=== PATIENT | male | born 1985 | race Caucasian/White ===

== ENCOUNTER 2016-06-26 12:50 | Inpatient (IN) | payer OTHER ==
[2016-06-26 13:06] VITALS: BMI 26.7
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
[2016-06-26] MEDS ORDERED: diazePAM 5 MG TABLET PO ONE (14:30)
[2016-06-26] MEDS ORDERED: METHADONE HCL 10 MG TABLET (FOR DETOX USE ONLY) PO ONE ×2 (14:30→23:00)
[2016-06-26] MEDS ORDERED: IBUPROFEN 400 MG TABLET (FP) PO PRN (14:32)
[2016-06-26] MEDS ORDERED: MAG HYDROX/AL HYDROX/SIMETH 30 ML UNIT-DOSE CUP PO PRN (14:32)
[2016-06-26] MEDS ORDERED: P-EPHED 60MG/TRIPROLIDI 2.5MG TABLET PO PRN (14:32)
[2016-06-26] MEDS ORDERED: hydrOXYzine PAMOATE 50 MG CAPSULE (FP) PO PRN (14:32)
[2016-06-26] MEDS ORDERED: ACETAMINOPHEN 325 MG TABLET (FP) PO PRN (14:32)
[2016-06-26] MEDS ORDERED: LOPERAMIDE HCL 2 MG CAPSULE PO PRN (14:32)
[2016-06-26] MEDS ORDERED: MENTHOL/PHENOL 1 EACH UD MM PRN (14:32)
[2016-06-26] MEDS ORDERED: MAGNESIUM CITRATE 300 ML BOTTLE PO PRN (14:32)
[2016-06-26] MEDS ORDERED: diphenhydrAMINE HCL 50 MG CAPSULE PO PRN (14:32)
[2016-06-26] MEDS ORDERED: guaiFENesin/D-METHORPHAN HB 10 ML UNIT-DOSE CUPS PO PRN (14:32)
[2016-06-26] MEDS ORDERED: MAGNESIUM HYDROX 2400MG/30ML ORAL SUSPENSION 30 ML CUP PO PRN (14:32)
[2016-06-26] MEDS: NICOTINE 21 MG/24 HOURS TOPICAL PATCH TD SCH (15:51)
[2016-06-26 17:04] LABS: URINE APPEARANCE CLEAR; URINE BILIRUBIN NEGATIVE (NEGATIVE); URINE BLOOD NEGATIVE (NEGATIVE); URINE COLOR YELLOW; URINE GLUCOSE (UA) NEGATIVE (NEGATIVE); URINE KETONE TRACE (NEGATIVE); URINE LEUK ESTERASE NEGATIVE (NEGATIVE); URINE NITRITE NEGATIVE (NEGATIVE); URINE PROTEIN NEGATIVE (NEGATIVE); URINE UROBILINOGEN 2.0 E.U/dl E.U./dl (0.2-1.0)
[2016-06-26] MEDS: RANITIDINE HCL 150 MG TABLET (FP) PO SCH (17:31)
[2016-06-26] MEDS: NICOTINE POLACRILEX 2 MG GUM BC PRN ×2 (20:03→22:19)
[2016-06-26] MEDS: diazePAM 5 MG TABLET PO PRN (20:04)
[2016-06-26] MEDS: CYCLOBENZAPRINE HCL 10 MG TABLET (FP) PO PRN (22:17)
[2016-06-26] MEDS: THIAMINE HCL 100 MG TABLET (FP) PO SCH (22:17)
[2016-06-26] MEDS: cloNIDine HCL 0.1 MG TABLET PO SCH (22:17)
[2016-06-26] MEDS: diazePAM 5 MG TABLET PO SCH (22:17)
[2016-06-27] MEDS: diazePAM 5 MG TABLET PO SCH ×3 (05:47→22:42)
[2016-06-27] MEDS: diazePAM 5 MG TABLET PO PRN ×3 (07:37→18:58)
[2016-06-27] MEDS: CYCLOBENZAPRINE HCL 10 MG TABLET (FP) PO PRN ×3 (07:37→18:58)
[2016-06-27] MEDS ORDERED: METHADONE HCL 10 MG TABLET (FOR DETOX USE ONLY) PO SCH (10:00)
[2016-06-27] MEDS: PRENATAL VITAMINS W/ FOLIC ACID TABLET (FP) PO SCH (10:37)
[2016-06-27] MEDS: cloNIDine HCL 0.1 MG TABLET PO SCH ×2 (10:37→22:42)
[2016-06-27] MEDS: NICOTINE 21 MG/24 HOURS TOPICAL PATCH TD SCH (10:37)
[2016-06-27 10:43] LABS: MCH 28.3 pg (25.7-33.7); MCHC 33.1 g/dl (32.0-35.9); MEAN CELL VOLUME 85.4 fl (80-96); PLATELET COUNT 357 K/MM3 (134-434); RDW 13.5 % (11.9-15.9); WHITE BLOOD COUNT 6.4 K/mm3 (4.0-10.0)
[2016-06-27] MEDS: RANITIDINE HCL 150 MG TABLET (FP) PO SCH (10:43)
[2016-06-27 11:02] LABS: ALBUMIN 2.8 g/dl (3.4-5.0); ALK PHOS 58 U/L (45-117); ANION GAP 7 (8-16); CALCIUM 8.1 mg/dL (8.5-10.1); CO2 28 mmol/L (21-32); CREATININE 0.8 mg/dL (0.7-1.3); GLUCOSE,RANDOM 93 mg/dL (74-106); SGOT/AST 8 U/L (15-37); SGPT/ALT 14 U/L (12-78); TOT PROT 5.6 g/dl (6.4-8.2)
--- NOTE | 2016-06-27 11:28 | EKG ---
Test Reason : Blood Pressure : / mmHG Vent. Rate : 075 BPM Atrial Rate : 075 BPM P-R Int : 140 ms QRS Dur : 086 ms QT Int : 418 ms P-R-T Axes : 067 052 027 degrees QTc Int : 466 ms NORMAL SINUS RHYTHM NORMAL ECG WHEN COMPARED WITH ECG OF 23-DEC-2014 19:28, NO SIGNIFICANT CHANGE WAS FOUND Confirmed by ARTURO NOBLES MD ([id number]) on 06/27/2016 11:27:31 AM Referred By: Confirmed By:ARTURO NOBLES MD
[2016-06-27 11:32] LABS: BILIRUBIN,TOTAL < 0.1 mg/dL (0.2-1.0)
[2016-06-27 12:07] LABS: HIV 1 & 2 AB NEGATIVE; HIV 1 AGp24 NEGATIVE
[2016-06-27] MEDS: NICOTINE POLACRILEX 2 MG GUM BC PRN (12:23)
--- NOTE | 2016-06-27 13:28 | PN ---
[facility] CIWA - CIWA Score Nausea/Vomitin Muscle Tremors: 4-Moderate,w/Arms Extend Anxiety: 4-Mod. Anxious/Guarded Agitation: 4-Moderately Restless Paroxysmal Sweats: 3 Orientation: 0-Oriented Tacttile Disturbances: 0-None Auditory Disturbances: 0-None Visual Disturbances: 0-None Headache: 0-None Present CIWA-Ar Total Score: 18 S COWS - Scale Resting Pulse: 0= [place] 80 or Below Sweatin=Flushed/Facial Moisture Restless Observation: 1= Difficult to Sit Still Pupil Size: 0= Normal to Room Light Bone or Joint Aches: 2= Severe Diffuse Aches Runny Nose/ Eye Tearin= Runny Nose/Eyes GI Upset > 30mins: 2= Nausea/Diarrhea Tremor Observation of Outstretched Hands: 2= Slight Tremor Visible Yawning Observation: 1= 1-2x During Session Anxiety or Irritability: 2=Irritable/Anxious Goose Flesh Skin: 0=Smooth Skin COWS Score: 14 S Progress Note (SOAP) Subjective: Sweating,anxiety,tremors,body aches,interrupted sleep,restless. Objective: 06/27/16 13:26 Vital Signs - 8 hr 06/27/16 06/27/16 06/27/16 06:45 09:30 13:21 Temperature 97.5 F L 96.2 F L 98.6 F Pulse Rate 73 76 69 Respiratory 16 18 18 Rate Blood Pressure 115/81 125/72 110/72 Laboratory Tests 06/26/16 06/26/16 06/27/16 07:00 16:45 07:00 WBC 6.4 RBC 4.29 Hgb 12.1 D Hct 36.7 MCV 85.4 MCHC 33.1 RDW 13.5 Plt Count 357 D MPV 8.0 Sodium Potassium Chloride Carbon Dioxide Anion Gap BUN Creatinine Creat Clearance w eGFR Random Glucose Calcium Total Bilirubin AST ALT Alkaline Phosphatase Total Protein Albumin Urine Color Yellow Urine Appearance Clear Urine pH 5.0 D Ur Specific [place] 1.030 Urine Protein Negative Urine Glucose (UA) Negative Urine Ketones Trace H Urine Blood Negative Urine Nitrite Negative Urine Bilirubin Negative Urine Urobilinogen 2.0 e.u/dl Ur Leukocyte Esterase Negative RPR Titer HIV 1&2 Antibody Screen Negative HIV P24 Antigen Negative 06/27/16 06/27/16 07:00 07:00 WBC RBC Hgb Hct MCV MCHC RDW Plt Count MPV Sodium 143 Potassium 4.3 Chloride 108 H Carbon Dioxide 28 Anion Gap 7 L BUN 8 D Creatinine 0.8 D Creat Clearance w eGFR > 60 Random Glucose 93 D Calcium 8.1 L D Total Bilirubin < 0.1 L D AST 8 L D ALT 14 D Alkaline Phosphatase 58 D Total Protein 5.6 L D Albumin 2.8 L D Urine Color Urine Appearance Urine pH Ur Specific [place] Urine Protein Urine Glucose (UA) Urine Ketones Urine Blood Urine Nitrite Urine Bilirubin Urine Urobilinogen Ur Leukocyte Esterase RPR Titer Nonreactive HIV 1&2 Antibody Screen HIV P24 Antigen labs noted Assessment: 06/27/16 13:27 Withdrawal sx. Plan: Continue detox
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
[2016-06-27] MEDS: THIAMINE HCL 100 MG TABLET (FP) PO SCH (22:42)
[2016-06-27] MEDS: ZOLPIDEM TARTRATE 10 MG TABLET (PARK CARE ONLY) PO PRN (22:42)
[2016-06-28] MEDS: CYCLOBENZAPRINE HCL 10 MG TABLET (FP) PO PRN ×3 (05:21→22:37)
[2016-06-28] MEDS: diazePAM 5 MG TABLET PO PRN ×3 (05:21→16:43)
[2016-06-28] MEDS ORDERED: DEXTROAMPHETAMINE/AMPHETAMINE 10 MG CAP.ER.24H PO SCH ×2 (08:00→10:00)
[2016-06-28] MEDS: diazePAM 5 MG TABLET PO SCH ×2 (10:38→22:37)
[2016-06-28] MEDS: PRENATAL VITAMINS W/ FOLIC ACID TABLET (FP) PO SCH (10:38)
[2016-06-28] MEDS: RANITIDINE HCL 150 MG TABLET (FP) PO SCH (10:39)
[2016-06-28] MEDS: METHADONE HCL 5 MG TABLET (FOR DETOX USE ONLY) PO SCH (10:39)
[2016-06-28] MEDS: cloNIDine HCL 0.1 MG TABLET PO SCH ×2 (10:39→22:37)
[2016-06-28] MEDS: NICOTINE 21 MG/24 HOURS TOPICAL PATCH TD SCH (10:41)
--- NOTE | 2016-06-28 11:10 | PN ---
[facility] CIWA - CIWA Score Nausea/Vomitin Muscle Tremors: 4-Moderate,w/Arms Extend Anxiety: 4-Mod. Anxious/Guarded Agitation: 4-Moderately Restless Paroxysmal Sweats: 3 Orientation: 0-Oriented Tacttile Disturbances: 0-None Auditory Disturbances: 0-None Visual Disturbances: 0-None Headache: 0-None Present CIWA-Ar Total Score: 17 S COWS - Scale Resting Pulse: 1= [place] 81-100 Sweatin=Flushed/Facial Moisture Restless Observation: 1= Difficult to Sit Still Pupil Size: 0= Normal to Room Light Bone or Joint Aches: 2= Severe Diffuse Aches Runny Nose/ Eye Tearin= Runny Nose/Eyes GI Upset > 30mins: 2= Nausea/Diarrhea Tremor Observation of Outstretched Hands: 2= Slight Tremor Visible Yawning Observation: 1= 1-2x During Session Anxiety or Irritability: 2=Irritable/Anxious Goose Flesh Skin: 0=Smooth Skin COWS Score: 15 [facility] Progress Note (SOAP) Subjective: Anxiety,tremors,interrupted sleep,restless,body aches Objective: 06/28/16 11:10 Vital Signs - 8 hr 06/28/16 06/28/16 06/28/16 03:29 05:57 09:51 Temperature 96.3 F L 95.9 F L Pulse Rate 79 97 H Respiratory 18 18 16 Rate Blood Pressure 112/65 131/87 Laboratory Last Values WBC 6.4 K/mm3 (4.0-10.0) 06/27/16 07:00 RBC 4.29 M/mm3 (4.00-5.60) 06/27/16 07:00 Hgb 12.1 GM/dL (11.7-16.9) D 06/27/16 07:00 Hct 36.7 % (35.4-49) 06/27/16 07:00 MCV 85.4 fl (80-96) 06/27/16 07:00 MCHC 33.1 g/dl (32.0-35.9) 06/27/16 07:00 RDW 13.5 % (11.9-15.9) 06/27/16 07:00 Plt Count 357 K/MM3 (134-434) D 06/27/16 07:00 MPV 8.0 fl (7.5-11.1) 06/27/16 07:00 Sodium 143 mmol/L (136-145) 06/27/16 07:00 Potassium 4.3 mmol/L (3.5-5.1) 06/27/16 07:00 Chloride 108 mmol/L (98-107) H 06/27/16 07:00 Carbon Dioxide 28 mmol/L (21-32) 06/27/16 07:00 Anion Gap 7 (8-16) L 06/27/16 07:00 BUN 8 mg/dL (7-18) D 06/27/16 07:00 Creatinine 0.8 mg/dL (0.7-1.3) D 06/27/16 07:00 Creat Clearance w eGFR > 60 (>60) 06/27/16 07:00 Random Glucose 93 mg/dL (74-106) D 06/27/16 07:00 Calcium 8.1 mg/dL (8.5-10.1) L D 06/27/16 07:00 Total Bilirubin < 0.1 mg/dL (0.2-1.0) L D 06/27/16 07:00 AST 8 U/L (15-37) L D 06/27/16 07:00 ALT 14 U/L (12-78) D 06/27/16 07:00 Alkaline Phosphatase 58 U/L (45-117) D 06/27/16 07:00 Total Protein 5.6 g/dl (6.4-8.2) L D 06/27/16 07:00 Albumin 2.8 g/dl (3.4-5.0) L D 06/27/16 07:00 Urine Color Yellow 06/26/16 16:45 Urine Appearance Clear 06/26/16 16:45 Urine pH 5.0 (5.0-8.0) D 06/26/16 16:45 Ur Specific [place] 1.030 (1.001-1.035) 06/26/16 16:45 Urine Protein Negative (NEGATIVE) 06/26/16 16:45 Urine Glucose (UA) Negative (NEGATIVE) 06/26/16 16:45 Urine Ketones Trace (NEGATIVE) H 06/26/16 16:45 Urine Blood Negative (NEGATIVE) 06/26/16 16:45 Urine Nitrite Negative (NEGATIVE) 06/26/16 16:45 Urine Bilirubin Negative (NEGATIVE) 06/26/16 16:45 Urine Urobilinogen 2.0 e.u/dl E.U./dl (0.2-1.0) 06/26/16 16:45 Ur Leukocyte Esterase Negative (NEGATIVE) 06/26/16 16:45 RPR Titer Nonreactive (NONREACTIVE) 06/27/16 07:00 Hepatitis C Antibody 0.1 s/co ratio (0.0-0.9) 06/26/16 07:00 HIV 1&2 Antibody Screen Negative 06/26/16 07:00 HIV P24 Antigen Negative 06/26/16 07:00 labs noted Assessment: 06/28/16 11:10 Withdrawal sx. Plan: Continue detox
[2016-06-28] MEDS: NICOTINE POLACRILEX 2 MG GUM BC PRN (14:05)
[2016-06-28] MEDS: THIAMINE HCL 100 MG TABLET (FP) PO SCH (22:37)
[2016-06-28] MEDS: ZOLPIDEM TARTRATE 10 MG TABLET (PARK CARE ONLY) PO PRN (22:37)
[2016-06-29] MEDS: diazePAM 5 MG TABLET PO PRN ×2 (05:37→13:30)
[2016-06-29] MEDS: DEXTROAMPHETAMINE/AMPHETAMINE 10 MG CAP.ER.24H PO SCH (07:36)
[2016-06-29] MEDS: CYCLOBENZAPRINE HCL 10 MG TABLET (FP) PO PRN ×2 (07:36→22:33)
[2016-06-29] MEDS: cloNIDine HCL 0.1 MG TABLET PO SCH ×2 (10:27→22:33)
[2016-06-29] MEDS: METHADONE HCL 5 MG TABLET (FOR DETOX USE ONLY) PO SCH (10:27)
[2016-06-29] MEDS: RANITIDINE HCL 150 MG TABLET (FP) PO SCH (10:27)
[2016-06-29] MEDS: PRENATAL VITAMINS W/ FOLIC ACID TABLET (FP) PO SCH (10:27)
[2016-06-29] MEDS: diazePAM 5 MG TABLET PO SCH ×2 (10:27→22:33)
[2016-06-29] MEDS: NICOTINE 21 MG/24 HOURS TOPICAL PATCH TD SCH (10:27)
--- NOTE | 2016-06-29 14:53 | PN ---
[facility] Progress Note (SOAP) Subjective: Sweating,interrupted sleep,restless Objective: 06/29/16 14:51 Vital Signs - 8 hr 06/29/16 06/29/16 09:48 13:29 Temperature 96.3 F L 96.9 F L Pulse Rate 87 113 H Respiratory 18 20 Rate Blood Pressure 127/73 129/80 Laboratory Tests 06/26/16 06/26/16 06/26/16 07:00 07:00 16:45 WBC RBC Hgb Hct MCV MCHC RDW Plt Count MPV Sodium Potassium Chloride Carbon Dioxide Anion Gap BUN Creatinine Creat Clearance w eGFR Random Glucose Calcium Total Bilirubin AST ALT Alkaline Phosphatase Total Protein Albumin Urine Color Yellow Urine Appearance Clear Urine pH 5.0 D Ur Specific [place] 1.030 Urine Protein Negative Urine Glucose (UA) Negative Urine Ketones Trace H Urine Blood Negative Urine Nitrite Negative Urine Bilirubin Negative Urine Urobilinogen 2.0 e.u/dl Ur Leukocyte Esterase Negative RPR Titer Hepatitis C Antibody 0.1 HIV 1&2 Antibody Screen Negative HIV P24 Antigen Negative 06/27/16 06/27/16 06/27/16 07:00 07:00 07:00 WBC 6.4 RBC 4.29 Hgb 12.1 D Hct 36.7 MCV 85.4 MCHC 33.1 RDW 13.5 Plt Count 357 D MPV 8.0 Sodium 143 Potassium 4.3 Chloride 108 H Carbon Dioxide 28 Anion Gap 7 L BUN 8 D Creatinine 0.8 D Creat Clearance w eGFR > 60 Random Glucose 93 D Calcium 8.1 L D Total Bilirubin < 0.1 L D AST 8 L D ALT 14 D Alkaline Phosphatase 58 D Total Protein 5.6 L D Albumin 2.8 L D Urine Color Urine Appearance Urine pH Ur Specific [place] Urine Protein Urine Glucose (UA) Urine Ketones Urine Blood Urine Nitrite Urine Bilirubin Urine Urobilinogen Ur Leukocyte Esterase RPR Titer Nonreactive Hepatitis C Antibody HIV 1&2 Antibody Screen HIV P24 Antigen labs noted Assessment: 06/29/16 14:52 Withdrawal sx. Plan: continue detox
[2016-06-29] MEDS: THIAMINE HCL 100 MG TABLET (FP) PO SCH (22:33)
[2016-06-29] MEDS: ZOLPIDEM TARTRATE 10 MG TABLET (PARK CARE ONLY) PO PRN (22:33)
[2016-06-29] MEDS: NICOTINE POLACRILEX 2 MG GUM BC PRN (22:36)
[2016-06-30] MEDS: CYCLOBENZAPRINE HCL 10 MG TABLET (FP) PO PRN (07:32)
[2016-06-30] MEDS: DEXTROAMPHETAMINE/AMPHETAMINE 10 MG CAP.ER.24H PO SCH ×2 (07:36→11:35)
[2016-06-30] MEDS ORDERED: METHADONE HCL 10 MG TABLET (FOR DETOX USE ONLY) PO SCH (10:00)
[2016-06-30] MEDS ORDERED: diazePAM 5 MG TABLET PO SCH (10:00)
[2016-06-30] MEDS: NICOTINE 21 MG/24 HOURS TOPICAL PATCH TD SCH (10:35)
[2016-06-30] MEDS: PRENATAL VITAMINS W/ FOLIC ACID TABLET (FP) PO SCH (10:35)
[2016-06-30] MEDS: cloNIDine HCL 0.1 MG TABLET PO SCH ×2 (10:35→22:04)
[2016-06-30] MEDS: RANITIDINE HCL 150 MG TABLET (FP) PO SCH (10:35)
--- NOTE | 2016-06-30 10:48 | PN ---
[facility] Progress Note (SOAP) Subjective: Sweating,interrupted sleep,restless. Objective: 06/30/16 10:47 Vital Signs - 8 hr 06/30/16 06/30/16 06/30/16 03:30 07:06 09:39 Temperature 97.6 F 97.0 F L Pulse Rate 73 78 Respiratory 18 18 18 Rate Blood Pressure 130/86 131/79 Laboratory Last Values WBC 6.4 K/mm3 (4.0-10.0) 06/27/16 07:00 RBC 4.29 M/mm3 (4.00-5.60) 06/27/16 07:00 Hgb 12.1 GM/dL (11.7-16.9) D 06/27/16 07:00 Hct 36.7 % (35.4-49) 06/27/16 07:00 MCV 85.4 fl (80-96) 06/27/16 07:00 MCHC 33.1 g/dl (32.0-35.9) 06/27/16 07:00 RDW 13.5 % (11.9-15.9) 06/27/16 07:00 Plt Count 357 K/MM3 (134-434) D 06/27/16 07:00 MPV 8.0 fl (7.5-11.1) 06/27/16 07:00 Sodium 143 mmol/L (136-145) 06/27/16 07:00 Potassium 4.3 mmol/L (3.5-5.1) 06/27/16 07:00 Chloride 108 mmol/L (98-107) H 06/27/16 07:00 Carbon Dioxide 28 mmol/L (21-32) 06/27/16 07:00 Anion Gap 7 (8-16) L 06/27/16 07:00 BUN 8 mg/dL (7-18) D 06/27/16 07:00 Creatinine 0.8 mg/dL (0.7-1.3) D 06/27/16 07:00 Creat Clearance w eGFR > 60 (>60) 06/27/16 07:00 Random Glucose 93 mg/dL (74-106) D 06/27/16 07:00 Calcium 8.1 mg/dL (8.5-10.1) L D 06/27/16 07:00 Total Bilirubin < 0.1 mg/dL (0.2-1.0) L D 06/27/16 07:00 AST 8 U/L (15-37) L D 06/27/16 07:00 ALT 14 U/L (12-78) D 06/27/16 07:00 Alkaline Phosphatase 58 U/L (45-117) D 06/27/16 07:00 Total Protein 5.6 g/dl (6.4-8.2) L D 06/27/16 07:00 Albumin 2.8 g/dl (3.4-5.0) L D 06/27/16 07:00 Urine Color Yellow 06/26/16 16:45 Urine Appearance Clear 06/26/16 16:45 Urine pH 5.0 (5.0-8.0) D 06/26/16 16:45 Ur Specific [place] 1.030 (1.001-1.035) 06/26/16 16:45 Urine Protein Negative (NEGATIVE) 06/26/16 16:45 Urine Glucose (UA) Negative (NEGATIVE) 06/26/16 16:45 Urine Ketones Trace (NEGATIVE) H 06/26/16 16:45 Urine Blood Negative (NEGATIVE) 06/26/16 16:45 Urine Nitrite Negative (NEGATIVE) 06/26/16 16:45 Urine Bilirubin Negative (NEGATIVE) 06/26/16 16:45 Urine Urobilinogen 2.0 e.u/dl E.U./dl (0.2-1.0) 06/26/16 16:45 Ur Leukocyte Esterase Negative (NEGATIVE) 06/26/16 16:45 RPR Titer Nonreactive (NONREACTIVE) 06/27/16 07:00 Hepatitis C Antibody 0.1 s/co ratio (0.0-0.9) 06/26/16 07:00 HIV 1&2 Antibody Screen Negative 06/26/16 07:00 HIV P24 Antigen Negative 06/26/16 07:00 labs noted Assessment: 06/30/16 10:47 Withdrawal sx. Plan: Continue detox
[2016-06-30] MEDS ORDERED: ZOLPIDEM TARTRATE 10 MG TABLET (PARK CARE ONLY) PO ONE (20:34)
[2016-06-30] MEDS: THIAMINE HCL 100 MG TABLET (FP) PO SCH (22:04)
[2016-07-01] MEDS: CYCLOBENZAPRINE HCL 10 MG TABLET (FP) PO PRN (05:21)
[2016-07-01] MEDS ORDERED: METHADONE HCL 5 MG TABLET (FOR DETOX USE ONLY) PO SCH (06:00)
[2016-07-01] MEDS: DEXTROAMPHETAMINE/AMPHETAMINE 10 MG CAP.ER.24H PO SCH (07:53)
--- NOTE | 2016-07-01 09:02 | DS ---
[facility] Detox Discharge Summary Admission Date: 06/26/16 Discharge Date: 07/01/16 - History Present History: Cocaine Dependence, Opioid Dependence Additional Comments: DETOX COMPLETED. ALERT O X 3. NAD. Pertinent Past History: ASTHMA GERD - Physical Exam Results Vital Signs: Vital Signs Temperature 96.5 F L 07/01/16 06:44 Pulse Rate 85 07/01/16 06:44 Respiratory Rate 18 07/01/16 06:44 Blood Pressure 119/76 07/01/16 06:44 O2 Sat by Pulse Oximetry (%) Pertinent Admission Physical Exam Findings: WITHDRAWAL SX - Treatment Hospital Course: Detox Protocol Followed, Detoxed Safely, Responded well, Discharged Condition Good - Medication Discharge Medications: Ambulatory Orders Ranitidine [Zantac -] 150 mg PO DAILY #30 tablet 06/02/15 - Diagnosis (1) Nicotine dependence Current Visit: Yes Status: Acute Qualifiers: Nicotine product type: cigarettes Substance use status: uncomplicated Qualified Code(s): F17.210 - Nicotine dependence, cigarettes, uncomplicated (2) Opioid dependence with withdrawal Current Visit: Yes Status: Acute (3) Substance induced mood disorder Current Visit: Yes Status: Acute (4) Asthma Current Visit: Yes Status: Chronic Qualifiers: Asthma severity: mild intermittent Asthma complication type: uncomplicated Qualified Code(s): J45.20 - Mild intermittent asthma, uncomplicated (5) GERD (gastroesophageal reflux disease) Current Visit: Yes Status: Chronic Qualifiers: Esophagitis presence: without esophagitis Qualified Code(s): K21.9 - Gastro-esophageal reflux disease without esophagitis - AMA Did Patient Leave Against Medical Advice: No
[2016-07-01 09:41] VITALS: BP 123/85; PULSE 115; TEMP 99
== END 2016-07-01 09:15 | disposition home or self-care (01) | DRG 773 ==
LOC: YASAS 12:50 → Y3N 15:04
PROVIDERS: ADMIT Internal Medicine; ATTEND Internal Medicine
PROC: HZ2ZZZZ Detoxification Services for Substance Abuse Treatment (ICD-10-PCS; principal; 2016-07-01)
DX: F11.23 Opioid dependence with withdrawal (principal); F14.20 Cocaine dependence, uncomplicated; F17.210 Nicotine dependence, cigarettes, uncomplicated; F19.24 Other psychoactive substance dependence with psychoactive substance-induced mood disorder; F51.05 Insomnia due to other mental disorder; F90.9 Attention-deficit hyperactivity disorder, unspecified type; K21.9 Gastro-esophageal reflux disease without esophagitis
CPT/HCPCS: 36415; 80053; 81003; 85027; 86593; 87389; 93005; 93010

== ENCOUNTER 2020-08-04 13:07 | Inpatient (IN) | payer BC ==
[2020-08-04] MEDS ORDERED: METHADONE HCL 10 MG TABLET (FOR DETOX USE ONLY) ONE (15:06)
[2020-08-04] MEDS ORDERED: NICOTINE POLACRILEX 2 MG GUM BUC PRN (15:18)
[2020-08-04] MEDS ORDERED: METHADONE HCL 10 MG TABLET (FOR DETOX USE ONLY) PO ONE (15:18)
[2020-08-04] MEDS ORDERED: MAGNESIUM CITRATE 300 ML BOTTLE PO PRN (15:18)
[2020-08-04] MEDS ORDERED: ONDANSETRON *ODT* 4 MG TABLET SL PRN (15:18)
[2020-08-04] MEDS ORDERED: cloNIDine HCL 0.1 MG TABLET PO PRN (15:18)
[2020-08-04] MEDS ORDERED: MAGNESIUM HYDROX 2400MG/30ML ORAL SUSPENSION 30 ML CUP PO PRN (15:18)
[2020-08-04] MEDS ORDERED: ACETAMINOPHEN 325 MG TABLET (FP) PO PRN (15:18)
[2020-08-04] MEDS ORDERED: MENTHOL/PHENOL 1 EACH UD MM PRN (15:18)
[2020-08-04 15:19] VITALS: BMI 23.5
[2020-08-04] MEDS: PRENATAL VITAMINS W/ FOLIC ACID TABLET (FP) PO SCH (17:16)
[2020-08-04] MEDS: NICOTINE 7 MG/24 HOURS TOPICAL PATCH TD SCH (17:16)
[2020-08-04] MEDS: hydrOXYzine PAMOATE 25 MG CAPSULE (FP) PO SCH ×2 (17:18→22:01)
[2020-08-04] MEDS: THIAMINE HCL 100 MG TABLET (FP) PO SCH (22:01)
[2020-08-04] MEDS: MELATONIN 5 MG TABLETS PO SCH (22:01)
[2020-08-04] MEDS: METHOCARBAMOL 500 MG TABLET PO PRN (22:02)
[2020-08-04] MEDS: IBUPROFEN 400 MG TABLET (FP) PO PRN (22:02)
[2020-08-04] MEDS: MAG HYDROX/AL HYDROX/SIMETH 30 ML UNIT-DOSE CUP PO PRN (23:12)
[2020-08-05] MEDS: hydrOXYzine PAMOATE 25 MG CAPSULE (FP) PO SCH ×5 (05:14→22:31)
[2020-08-05] MEDS: ACETAMINOPHEN 325 MG TABLET (FP) PO PRN ×2 (05:15→10:34)
[2020-08-05] MEDS ORDERED: METHADONE HCL 10 MG TABLET (FOR DETOX USE ONLY) ONE (09:06)
[2020-08-05] MEDS ORDERED: METHADONE HCL 5 MG TABLET (FOR DETOX USE ONLY) ONE (09:07)
[2020-08-05] MEDS ORDERED: METHADONE (DETOX) 20 MG, METHADONE (DETOX) 5 MG PO ONE (10:00)
[2020-08-05] MEDS: NICOTINE 7 MG/24 HOURS TOPICAL PATCH TD SCH (10:29)
[2020-08-05] MEDS: METHOCARBAMOL 500 MG TABLET PO PRN ×2 (10:32→16:57)
[2020-08-05] MEDS: PRENATAL VITAMINS W/ FOLIC ACID TABLET (FP) PO SCH (10:32)
[2020-08-05 10:57] LABS: HEMOGLOBIN 13.2 GM/dL (11.7-16.9); MCH 29.6 pg (25.7-33.7); MCHC 33.8 g/dl (32.0-35.9); MEAN CELL VOLUME 87.4 fl (80-96); MEAN PLT VOLUME 8.4 fl (7.5-11.1); PLATELET COUNT 316 K/MM3 (134-434); RBC 4.46 M/mm3 (4.00-5.60); RDW 14.3 % (11.9-15.9); WHITE BLOOD COUNT 8.1 K/mm3 (4.0-10.0)
[2020-08-05 11:13] LABS: ALBUMIN 3.9 g/dl (3.4-5.0)
[2020-08-05] MEDS: diazePAM 5 MG TABLET PO PRN ×3 (11:13→22:30)
[2020-08-05 11:16] LABS: CREATININE 0.8 mg/dL (0.55-1.3)
[2020-08-05 11:18] LABS: BILIRUBIN,TOTAL 0.6 mg/dL (0.2-1); TOT PROT 6.8 g/dl (6.4-8.2)
[2020-08-05] MEDS: IBUPROFEN 400 MG TABLET (FP) PO PRN (16:57)
[2020-08-05] MEDS: traZODone HCL 50 MG TABLET (FP) PO SCH (22:31)
[2020-08-05] MEDS: MELATONIN 5 MG TABLETS PO SCH (22:31)
[2020-08-05] MEDS: THIAMINE HCL 100 MG TABLET (FP) PO SCH (22:31)
[2020-08-06] MEDS: diazePAM 5 MG TABLET PO PRN ×4 (05:11→22:30)
[2020-08-06] MEDS: hydrOXYzine PAMOATE 25 MG CAPSULE (FP) PO SCH ×5 (05:11→22:29)
[2020-08-06] MEDS: IBUPROFEN 400 MG TABLET (FP) PO PRN ×2 (05:12→15:30)
[2020-08-06] MEDS ORDERED: METHADONE HCL 10 MG TABLET (FOR DETOX USE ONLY) PO ONE (10:00)
[2020-08-06] MEDS: PRENATAL VITAMINS W/ FOLIC ACID TABLET (FP) PO SCH (10:41)
[2020-08-06] MEDS: METHOCARBAMOL 500 MG TABLET PO PRN (10:42)
[2020-08-06] MEDS: NICOTINE 7 MG/24 HOURS TOPICAL PATCH TD SCH (10:46)
[2020-08-06] MEDS: BISMUTH SUBSALICYLATE 524 MG/30 ML UD PO PRN (10:48)
[2020-08-06] MEDS ORDERED: MASKS NR ONE (18:45)
[2020-08-06] MEDS: traZODone HCL 50 MG TABLET (FP) PO SCH (22:29)
[2020-08-06] MEDS: MELATONIN 5 MG TABLETS PO SCH (22:30)
[2020-08-06] MEDS: THIAMINE HCL 100 MG TABLET (FP) PO SCH (22:30)
[2020-08-06] MEDS: MAG HYDROX/AL HYDROX/SIMETH 30 ML UNIT-DOSE CUP PO PRN (22:31)
[2020-08-06] MEDS: PANTOPRAZOLE 20 MG TABLET PO SCH (22:58)
[2020-08-07] MEDS: hydrOXYzine PAMOATE 25 MG CAPSULE (FP) PO SCH ×5 (05:29→22:23)
[2020-08-07] MEDS: IBUPROFEN 400 MG TABLET (FP) PO PRN ×2 (05:29→17:58)
[2020-08-07] MEDS: diazePAM 5 MG TABLET PO PRN ×5 (05:31→22:22)
[2020-08-07] MEDS ORDERED: METHADONE HCL 10 MG TABLET (FOR DETOX USE ONLY) ONE (09:06)
[2020-08-07] MEDS ORDERED: METHADONE HCL 5 MG TABLET (FOR DETOX USE ONLY) ONE (09:06)
[2020-08-07] MEDS: ACETAMINOPHEN 325 MG TABLET (FP) PO PRN (09:15)
[2020-08-07] MEDS: METHOCARBAMOL 500 MG TABLET PO PRN ×2 (09:16→17:58)
[2020-08-07] MEDS: PANTOPRAZOLE 20 MG TABLET PO SCH ×2 (09:16→22:23)
[2020-08-07] MEDS: PRENATAL VITAMINS W/ FOLIC ACID TABLET (FP) PO SCH (09:16)
[2020-08-07] MEDS: NICOTINE 7 MG/24 HOURS TOPICAL PATCH TD SCH (09:17)
[2020-08-07] MEDS ORDERED: METHADONE (DETOX) 10 MG, METHADONE (DETOX) 5 MG PO ONE (10:00)
[2020-08-07 14:08] LABS: SARS-CoV-2 NAA Not Detected (Not Detected)
[2020-08-07] MEDS: traZODone HCL 50 MG TABLET (FP) PO SCH (22:21)
[2020-08-07] MEDS: MELATONIN 5 MG TABLETS PO SCH (22:21)
[2020-08-07] MEDS: THIAMINE HCL 100 MG TABLET (FP) PO SCH (22:24)
[2020-08-08] MEDS: hydrOXYzine PAMOATE 25 MG CAPSULE (FP) PO SCH ×5 (05:08→22:10)
[2020-08-08] MEDS: diazePAM 5 MG TABLET PO PRN ×2 (05:08→10:17)
[2020-08-08] MEDS: METHOCARBAMOL 500 MG TABLET PO PRN ×2 (05:09→22:10)
[2020-08-08] MEDS: IBUPROFEN 400 MG TABLET (FP) PO PRN ×2 (05:09→20:28)
[2020-08-08] MEDS ORDERED: METHADONE HCL 10 MG TABLET (FOR DETOX USE ONLY) PO ONE (10:00)
[2020-08-08] MEDS: PANTOPRAZOLE 20 MG TABLET PO SCH ×2 (10:17→22:12)
[2020-08-08] MEDS: PRENATAL VITAMINS W/ FOLIC ACID TABLET (FP) PO SCH (10:18)
[2020-08-08] MEDS: ACETAMINOPHEN 325 MG TABLET (FP) PO PRN (10:18)
[2020-08-08] MEDS: NICOTINE 7 MG/24 HOURS TOPICAL PATCH TD SCH (10:19)
[2020-08-08] MEDS: traZODone HCL 50 MG TABLET (FP) PO SCH (22:10)
[2020-08-08] MEDS: THIAMINE HCL 100 MG TABLET (FP) PO SCH (22:10)
[2020-08-08] MEDS: MELATONIN 5 MG TABLETS PO SCH (22:11)
[2020-08-08] MEDS: BISMUTH SUBSALICYLATE 524 MG/30 ML UD PO PRN (22:12)
[2020-08-09] MEDS: METHOCARBAMOL 500 MG TABLET PO PRN (05:49)
[2020-08-09] MEDS: hydrOXYzine PAMOATE 25 MG CAPSULE (FP) PO SCH (05:49)
[2020-08-09] MEDS ORDERED: METHADONE HCL 5 MG TABLET (FOR DETOX USE ONLY) PO ONE (06:00)
[2020-08-09] MEDS ORDERED: MASKS NR ONE (07:16)
[2020-08-09 09:36] VITALS: BP 127/85; PULSE 74; TEMP 97.5
== END 2020-08-09 09:20 | disposition home or self-care (01) | DRG 773 ==
LOC: YASAS 13:07 → Y3N 16:15
PROVIDERS: ADMIT Allergy & Immunology; ATTEND Allergy & Immunology
PROC: HZ2ZZZZ Detoxification Services for Substance Abuse Treatment (ICD-10-PCS; principal; 2020-08-04)
DX: F11.23 Opioid dependence with withdrawal (principal); F13.20 Sedative, hypnotic or anxiolytic dependence, uncomplicated; F12.20 Cannabis dependence, uncomplicated; F17.210 Nicotine dependence, cigarettes, uncomplicated; F19.24 Other psychoactive substance dependence with psychoactive substance-induced mood disorder; F31.9 Bipolar disorder, unspecified; F51.05 Insomnia due to other mental disorder; F90.9 Attention-deficit hyperactivity disorder, unspecified type; K21.9 Gastro-esophageal reflux disease without esophagitis; R63.4 Abnormal weight loss; Z68.23 Body mass index [BMI] 23.0-23.9, adult; Z98.890 Other specified postprocedural states; Z91.19 Patient's noncompliance with other medical treatment and regimen
CPT/HCPCS: 36415; 80053; 85027; 86780; C9803; J0735; U0003; U0005

== ENCOUNTER 2022-01-28 12:32 | Inpatient (IN) | payer BC ==
[2022-01-28 15:45] VITALS: BMI 24.3
[2022-01-28] MEDS ORDERED: DICYCLOMINE HCL 10 MG CAPSULE PO PRN (15:55)
[2022-01-28] MEDS ORDERED: MAGNESIUM HYDROX 2400MG/30ML ORAL SUSPENSION 30 ML CUP PO PRN (15:55)
[2022-01-28] MEDS ORDERED: NALOXONE HCL (KLOXXADO) 8 MG SPRAY NS PRN (15:55)
[2022-01-28] MEDS ORDERED: BENZOCAINE/MENTHOL (CHLORASEPTIC ) LOZENGE MM PRN (15:55)
[2022-01-28] MEDS ORDERED: IBUPROFEN 400 MG TABLET (FP) PO PRN (15:55)
[2022-01-28] MEDS ORDERED: MAGNESIUM CITRATE 300 ML BOTTLE PO PRN (15:55)
[2022-01-28] MEDS ORDERED: LOPERAMIDE HCL 2 MG CAPSULE PO PRN (15:55)
[2022-01-28] MEDS ORDERED: ONDANSETRON *ODT* 4 MG TABLET SL PRN (15:55)
[2022-01-28] MEDS ORDERED: MAG HYDROX/AL HYDROX/SIMETH 30 ML UNIT-DOSE CUP PO PRN (15:55)
[2022-01-28] MEDS ORDERED: BISMUTH SUBSALICYLATE 524 MG/30 ML PO PRN (15:55)
[2022-01-28] MEDS ORDERED: ACETAMINOPHEN 325 MG TABLET (FP) PO PRN (15:55)
[2022-01-28] MEDS ORDERED: NICOTINE POLACRILEX 2 MG GUM BC PRN (15:58)
[2022-01-28] MEDS: NICOTINE 14 MG/24 HOURS TOPICAL PATCH TD SCH (18:21)
[2022-01-28] MEDS: PRENATAL VITAMINS W/ FOLIC ACID TABLET (FP) PO SCH (18:21)
[2022-01-28] MEDS: METHOCARBAMOL 500 MG TABLET PO PRN (18:23)
[2022-01-28] MEDS: hydrOXYzine PAMOATE 25 MG CAPSULE (FP) PO SCH ×2 (18:23→22:17)
[2022-01-28] MEDS: ACETAMINOPHEN 325 MG TABLET (FP) PO PRN (18:25)
[2022-01-28] MEDS: MELATONIN 5 MG TABLETS PO SCH (22:17)
[2022-01-28] MEDS: THIAMINE HCL 100 MG TABLET (FP) PO SCH (22:17)
[2022-01-29] MEDS: hydrOXYzine PAMOATE 25 MG CAPSULE (FP) PO SCH ×5 (05:37→22:16)
[2022-01-29] MEDS: cloNIDine HCL 0.1 MG TABLET PO PRN ×3 (09:04→22:17)
[2022-01-29] MEDS: METHOCARBAMOL 500 MG TABLET PO PRN ×2 (09:04→17:23)
[2022-01-29] MEDS: NICOTINE 14 MG/24 HOURS TOPICAL PATCH TD SCH (09:07)
[2022-01-29] MEDS: PRENATAL VITAMINS W/ FOLIC ACID TABLET (FP) PO SCH (09:08)
[2022-01-29] MEDS ORDERED: methaDONE HCL 10 MG TABLET (FOR DETOX USE ONLY) PO ONE (10:00)
[2022-01-29] MEDS: SERTRALINE HCL 50 MG TABLET (FP) PO SCH (10:58)
[2022-01-29] MEDS: ACETAMINOPHEN 325 MG TABLET (FP) PO PRN (11:31)
[2022-01-29] MEDS ORDERED: FLU VACC QS2022-23(6MOS UP)/PF 60 MCG/0.5 ML SYRINGE IM ONE (12:00)
[2022-01-29 12:10] LABS: HEMATOCRIT 43.1 % (35.4-49); HEMOGLOBIN 14.1 GM/dL (11.7-16.9); MCH 27.6 pg (25.7-33.7); MCHC 32.7 g/dl (32.0-35.9); MEAN CELL VOLUME 84.5 fl (80-96); PLATELET COUNT 379 10^3/uL (134-434); RDW 15.9 % (11.9-15.9)
[2022-01-29 12:23] LABS: CALCIUM 9.7 mg/dL (8.5-10.1)
[2022-01-29 12:24] LABS: ALBUMIN 4.1 g/dl (3.4-5.0); BLOOD UREA NITROGEN 12.1 mg/dL (7-18)
[2022-01-29 12:28] LABS: BILIRUBIN,TOTAL 0.4 mg/dL (0.2-1); TOT PROT 7.7 g/dl (6.4-8.2)
[2022-01-29] MEDS: NICOTINE 10 MG CARTRIDGE (INHALER) IH PRN (17:23)
[2022-01-29] MEDS: THIAMINE HCL 100 MG TABLET (FP) PO SCH (22:16)
[2022-01-29] MEDS: traZODone HCL 100 MG TABLET (FP) PO SCH (22:16)
[2022-01-29] MEDS: MELATONIN 5 MG TABLETS PO SCH (22:18)
[2022-01-30] MEDS: hydrOXYzine PAMOATE 25 MG CAPSULE (FP) PO SCH ×5 (07:22→21:14)
[2022-01-30] MEDS: METHOCARBAMOL 500 MG TABLET PO PRN ×2 (09:04→17:06)
[2022-01-30] MEDS: PRENATAL VITAMINS W/ FOLIC ACID TABLET (FP) PO SCH (09:04)
[2022-01-30] MEDS: SERTRALINE HCL 50 MG TABLET (FP) PO SCH (09:04)
[2022-01-30] MEDS: NICOTINE 14 MG/24 HOURS TOPICAL PATCH TD SCH (10:48)
[2022-01-30] MEDS: cloNIDine HCL 0.1 MG TABLET PO PRN (10:48)
[2022-01-30] MEDS: NICOTINE 10 MG CARTRIDGE (INHALER) IH PRN ×2 (10:49→18:22)
[2022-01-30] MEDS: diazePAM 5 MG TABLET PO PRN ×3 (13:05→21:12)
[2022-01-30] MEDS: IBUPROFEN 600 MG TABLET (FP) PO PRN (17:06)
[2022-01-30] MEDS: THIAMINE HCL 100 MG TABLET (FP) PO SCH (21:12)
[2022-01-30] MEDS: traZODone HCL 100 MG TABLET (FP) PO SCH (21:13)
[2022-01-30] MEDS: ACETAMINOPHEN 325 MG TABLET (FP) PO PRN (21:13)
[2022-01-30] MEDS: MELATONIN 5 MG TABLETS PO SCH (23:16)
[2022-01-31] MEDS: hydrOXYzine PAMOATE 25 MG CAPSULE (FP) PO SCH ×5 (07:07→22:17)
[2022-01-31 09:12] VITALS: RESP 18
[2022-01-31] MEDS: SERTRALINE HCL 50 MG TABLET (FP) PO SCH (09:20)
[2022-01-31] MEDS: METHOCARBAMOL 500 MG TABLET PO PRN ×2 (09:20→18:26)
[2022-01-31] MEDS: NICOTINE 14 MG/24 HOURS TOPICAL PATCH TD SCH (09:24)
[2022-01-31] MEDS: PRENATAL VITAMINS W/ FOLIC ACID TABLET (FP) PO SCH (09:24)
[2022-01-31] MEDS ORDERED: methaDONE HCL 10 MG TABLET (FOR DETOX USE ONLY) PO ONE (10:00)
[2022-01-31] MEDS: diazePAM 5 MG TABLET PO PRN ×4 (10:54→22:44)
[2022-01-31] MEDS: NICOTINE 10 MG CARTRIDGE (INHALER) IH PRN (13:03)
[2022-01-31] MEDS: IBUPROFEN 600 MG TABLET (FP) PO PRN (18:27)
[2022-01-31] MEDS: traZODone HCL 100 MG TABLET (FP) PO SCH (22:16)
[2022-01-31] MEDS: THIAMINE HCL 100 MG TABLET (FP) PO SCH (22:17)
[2022-01-31] MEDS: MELATONIN 5 MG TABLETS PO SCH (22:18)
[2022-02-01] MEDS: hydrOXYzine PAMOATE 25 MG CAPSULE (FP) PO SCH ×2 (05:25→09:16)
[2022-02-01] MEDS: METHOCARBAMOL 500 MG TABLET PO PRN (05:27)
[2022-02-01] MEDS: diazePAM 5 MG TABLET PO PRN ×2 (05:27→09:17)
[2022-02-01] MEDS: SERTRALINE HCL 50 MG TABLET (FP) PO SCH (09:16)
[2022-02-01] MEDS: PRENATAL VITAMINS W/ FOLIC ACID TABLET (FP) PO SCH (09:16)
[2022-02-01] MEDS: NICOTINE 14 MG/24 HOURS TOPICAL PATCH TD SCH (09:18)
[2022-02-01 10:52] VITALS: BP 129/76; PULSE 87; TEMP 97.1
[2022-02-02] MEDS ORDERED: methaDONE HCL 10 MG TABLET (FOR DETOX USE ONLY) PO ONE (10:00)
== END 2022-02-01 10:20 | disposition left against medical advice (07) | DRG 770 ==
LOC: YASAS 12:32 → Y6N 16:45
PROVIDERS: ADMIT Allergy & Immunology; ATTEND Surgery
PROC: HZ2ZZZZ Detoxification Services for Substance Abuse Treatment (ICD-10-PCS; principal; 2022-01-28)
DX: F11.23 Opioid dependence with withdrawal (principal); F14.20 Cocaine dependence, uncomplicated; F13.20 Sedative, hypnotic or anxiolytic dependence, uncomplicated; F17.210 Nicotine dependence, cigarettes, uncomplicated; F19.24 Other psychoactive substance dependence with psychoactive substance-induced mood disorder; F31.9 Bipolar disorder, unspecified; F43.10 Post-traumatic stress disorder, unspecified; K21.9 Gastro-esophageal reflux disease without esophagitis; R63.4 Abnormal weight loss; Z68.24 Body mass index [BMI] 24.0-24.9, adult; Z86.69 Personal history of other diseases of the nervous system and sense organs
CPT/HCPCS: 36415; 80053; 82962; 85027; 86780; 93005; 93010; C9803-CS; G0008; Q2036; U0003; U0005

== ENCOUNTER 2022-02-02 22:08 | Emergency (ER) | payer BC ==
[2022-02-02 22:32] VITALS: BP 119/66; PULSE 86; RESP 14; TEMP 98.6; BMI 24.3
== END 2022-02-02 23:15 | disposition left against medical advice (07) ==
LOC: JER 22:08
DX: F11.20 Opioid dependence, uncomplicated (principal)
CPT/HCPCS: 99283-25; 99284-25